=== PATIENT | male | born 1995 | race Two or more races ===

== ENCOUNTER 2017-12-22 16:30 | Emergency (ER) | payer OTHER ==
--- NOTE | 2017-12-22 16:47 | ER Report ---
History and Physical Time Seen By MD: 16:47 Hx. of Stated Complaint: pt presents with back pain for 1 month. Thought it would be gone by now. Does not recall injuring himself, does carry a heavy back pack, RECENT LONG CAR TRIP HPI/ROS CHIEF COMPLAINT: Back pain HISTORY OF PRESENT ILLNESS: 22-year-old male patient presents to the emergency room with complaint of back pain. Patient states back pains been going on for the past month. He states that he does have to carry heavy books round his backpack as he is student. He also states that he was on a long car ride, 12 hours, prior to this starting. He states that there is some positions he can make the pain worse. He states that currently his pain as a 2 out of 10. He denies any saddle paresthesia. He denies any loss of bowel or bladder control. He states there is nothing seems like the pain better or worse. He states that he is not taking any medication for this. REVIEW OF SYSTEMS: Respiratory: No cough, no dyspnea. Cardiovascular: No chest pain, no palpitations. Gastrointestinal: No vomiting, no abdominal pain. Musculoskeletal: As noted above Allergies: Coded Allergies: No Known Drug Allergies (Unverified , 12/22/17) Home Meds Active Scripts Diclofenac Sodium (DICLOFENAC SODIUM) 75 Mg Tablet., 75 MG PO BID, #20 TAB Prov:IRENE MEJIAS 12/22/17 Past Medical/Surgical History Patient denies any pertinent medical or surgical history. Reviewed Nurses Notes: Yes Constitutional Vital Sign - Last 24 Hours 12/22/17 12/22/17 12/22/17 12/22/17 16:30 16:39 16:41 16:47 Temp 98.0 Pulse ??? 122 Resp 16 B/P (MAP) 90/81 90/81 (84) 103/80 (88) Pulse Ox 97 O2 Delivery Room Air 12/22/17 12/22/17 12/22/17 17:00 17:30 18:00 Pulse 97 89 82 B/P (MAP) 109/69 (82) 93/66 (75) 111/68 (82) Pulse Ox 98 96 98 Physical Exam General Appearance: The patient is alert, has no immediate need for airway protection and no current signs of toxicity. ENT: Tympanic membranes are pearly-alvarenga, auditory canals are patent, mucous membranes are moist. Respiratory: Chest is non tender, lungs are clear to auscultation. Cardiac: regular rate and rhythm Gastrointestinal: Abdomen is soft and non tender, no masses, bowel sounds normal. Musculoskeletal: Neck: Neck is supple and non tender. Back: Patient has no tenderness, there is no deformity. Extremities have full range of motion and are non tender. Skin: No rashes or lesions. DIFFERENTIAL DIAGNOSIS: After history and physical exam differential diagnosis was considered for back pain including but not limited to muscular pain, herniated disc, spine fracture, intra-abdominal causes and urinary tract infection. Medical Decision Making Data Points Laboratory Hematology Test 12/22/17 17:18 Urine Color [place]ma Urine Clarity Clear Urine pH 5.0 pH (4.8-9.5) Urine Specific [place] 1.027 Urine Protein Negative mg/dL (NEGATIVE) Urine Glucose (UA) Negative mg/dL (NEGATIVE) Urine Ketones Trace mg/dL (NEGATIVE) Urine Blood Negative (NEGATIVE) Urine Nitrite Negative (NEGATIVE) Urine Bilirubin Negative (NEGATIVE) Urine Urobilinogen 4.0 mg/dL (0.2-1.9) Urine Leukocyte Esterase Negative (NEGATIVE) Urine RBC 1 /HPF (0-2/HPF) Urine WBC 3 /HPF (0-5/HPF) Urine Squamous Epithelial Cells None /LPF (</=FEW) Urine Bacteria Negative /HPF (NONE-FEW) Urine Mucus Few /HPF (NONE-FEW) Chemistry Test 12/22/17 17:18 Urine Color Enma Urine Clarity Clear Urine pH 5.0 pH (4.8-9.5) Urine Specific [place] 1.027 Urine Protein Negative mg/dL (NEGATIVE) Urine Glucose (UA) Negative mg/dL (NEGATIVE) Urine Ketones Trace mg/dL (NEGATIVE) Urine Blood Negative (NEGATIVE) Urine Nitrite Negative (NEGATIVE) Urine Bilirubin Negative (NEGATIVE) Urine Urobilinogen 4.0 mg/dL (0.2-1.9) Urine Leukocyte Esterase Negative (NEGATIVE) Urine RBC 1 /HPF (0-2/HPF) Urine WBC 3 /HPF (0-5/HPF) Urine Squamous Epithelial Cells None /LPF (</=FEW) Urine Bacteria Negative /HPF (NONE-FEW) Urine Mucus Few /HPF (NONE-FEW) Urinalysis Test 12/22/17 17:18 Urine Color [place]ma Urine Clarity Clear Urine pH 5.0 pH (4.8-9.5) Urine Specific [place] 1.027 Urine Protein Negative mg/dL (NEGATIVE) Urine Glucose (UA) Negative mg/dL (NEGATIVE) Urine Ketones Trace mg/dL (NEGATIVE) Urine Blood Negative (NEGATIVE) Urine Nitrite Negative (NEGATIVE) Urine Bilirubin Negative (NEGATIVE) Urine Urobilinogen 4.0 mg/dL (0.2-1.9) Urine Leukocyte Esterase Negative (NEGATIVE) Urine RBC 1 /HPF (0-2/HPF) Urine WBC 3 /HPF (0-5/HPF) Urine Squamous Epithelial Cells None /LPF (</=FEW) Urine Bacteria Negative /HPF (NONE-FEW) Urine Mucus Few /HPF (NONE-FEW) EKG/Imaging Imaging Examination: LUMBAR SPINE 4 VIEWS Comparison: None. History: Back pain for 3 weeks. No known injury. Findings: 5 lumbar type vertebral bodies. Vertebral body height and alignment is within normal limits. Thoracolumbar, lumbosacral, facet, and sacroiliac alignment is preserved. No pars defect is identified. Disc spaces are unremarkable. Visualized soft tissues are unremarkable. IMPRESSION: Negative lumbar spine. Report Dictated By: Reggie Hitchcock MD at 12/22/2017 5:50 PM Report E-Signed By: Reggie Hitchcock MD at 12/22/2017 5:52 PM ED Course/Re-evaluation ED Course Patient was admitted to examine, history and physical were obtained. Differential diagnoses were considered. On examination patient has no obvious tenderness to the lumbar spine. He is moving without any signs of pain or discomfort. A urinalysis, x-ray of the lumbar spine was done. X-rays were negative. The urinalysis showed 3 white blood cells. As a result of that we will go ahead and culture and treat based on culture. I believe this was likely dirty sample the culture will show contamination. I discussed findings with patient. We will go ahead and treat him with anti-inflammatory. He is to take that twice a day for the next 10 days. He is to limit his heavy lifting, he is to limit activity by pain. He is return to emergency room if condition worsens. I would like and follow-up primary care in the next week. Patient verbalized understanding and agreement. Decision to Disposition Date: Dec 22, 2017 Decision to Disposition Time: 18:07 Depart Departure Latest Vital Signs Vital Signs Date Time Temp Pulse Resp B/P (MAP) Pulse Ox O2 Delivery O2 Flow Rate FiO2 12/22/17 18:00 82 111/68 (82) 98 12/22/17 16:39 98.0 16 Room Air Impression: Primary Impression: Back pain Condition: Improved Disposition: HOME OR SELF-CARE New Scripts Diclofenac Sodium (DICLOFENAC SODIUM) 75 Mg Tablet. 75 MG PO BID, #20 TAB Prov: IRENE MEJIAS 12/22/17 Patient Instructions: Acute Low Back Pain (ED) Additional Instructions: Limit activity by pain. No heavy lifting. Return to the ER if condition worsens. Follow up with [facility] in the next week. Apply heat to the back. You can have labs done at [place] [id number] [facility] Problem Qualifiers Primary Impression: Back pain Back pain location: low back pain Chronicity: acute Back pain laterality: midline Sciatica presence: without sciatica Qualified Codes: M54.5 - Low back pain IRENE MEJIAS Dec 22, 2017 16:47
--- NOTE | 2017-12-22 17:56 | RADIOLOGY IMAGING REPORT ---
FACILITY: [facility] PATIENT NAME: Enrike Leija : 1995 MR: [id number] V: [id number] EXAM DATE: ORDERING PHYSICIAN: IRENE MEJIAS TECHNOLOGIST: Location: [facility] [place] Patient: Enrike Leija : 1995 Visit/Account:[id number] Date of Sevice: 12/22/2017 Examination: LUMBAR SPINE 4 VIEWS Comparison: None. History: Back pain for 3 weeks. No known injury. Findings: 5 lumbar type vertebral bodies. Vertebral body height and alignment is within normal limits . Thoracolumbar, lumbosacral, facet, and sacroiliac alignment is preserved. No pars defect is identif ied. Disc spaces are unremarkable. Visualized soft tissues are unremarkable. IMPRESSION: Negative lumbar spine. Report Dictated By: Reggie Hitchcock MD at 12/22/2017 5:50 PM Report E-Signed By: Reggie Hitchcock MD at 12/22/2017 5:52 PM WSN:[id number]
[2017-12-22 18:00] VITALS: BP 111/68
[2017-12-22] MEDS ORDERED: DICL-195 PO (18:09)
== END 2017-12-22 18:22 | disposition home or self-care (01) ==
LOC: ER 16:45
DX: M54.5 Low back pain (principal)
CPT/HCPCS: 72120; 81001; 87088; 99283